=== PATIENT | female | born 1990 | race Hispanic/Latino ===

== ENCOUNTER 2017-09-23 07:49 | Emergency (ER) | payer MEDICAID, OTHER ==
[2017-09-23] MEDS ORDERED: ONDANSETRON ODT 4 MG TAB ONE (07:54)
[2017-09-23 08:11] LABS: APPEARANCE,URINE Clear (CLEAR); BILIRUBIN,URINE Negative (NEGATIVE); COLOR,URINE Yellow (YELLOW); GLUCOSE, URINE (UA) Negative (NEGATIVE); HCG,QUAL RESULT NEGATIVE (NEGATIVE); KETONES,URINE Negative (NEGATIVE); LEUKOCYTE ESTERASE ,URINE Negative (NEGATIVE); NITRATE,URINE Negative (NEGATIVE); OCCULT BLOOD,URINE Negative (NEGATIVE); PH,URINE 7.5 (5.0-8.0); PROTEIN,URINE Negative (NEGATIVE)
[2017-09-23 08:49] LABS: BASOPHILS % (AUTO) 0.1 % (0.0-5.0); EOSINOPHILS % (AUTO) 0.2 % (0.0-8.0); HEMATOCRIT 42.1 % (36-48); LYMPHOCYTES % (AUTO) 1.6 % (21.0-51.0); MEAN CORPUSCULAR HEMOGLOBIN 34.5 pg (27.0-33.0); MEAN CORPUSCULAR HGB CONC 35.2 g/dL (32.0-36.0); MEAN CORPUSCULAR VOLUME 98.1 fL (79-99); MONOCYTES % (AUTO) 4.2 % (3.0-13.0); NEUTROPHILS % (AUTO) 93.9 % (40.0-77.0); PLATELET COUNT (AUTO) 270 K/uL (130-400); RED BLOOD CELL COUNT(AUTO) 4.29 MIL/uL (4.00-5.50); RED CELL DISTRIBUTION WIDTH 13.5 % (11.0-15.5); WHITE BLOOD COUNT (AUTO) 14.6 K/uL (4.8-10.8)
[2017-09-23 09:04] LABS: CREATININE 0.8 mg/dL (0.5-1.5); POTASSIUM 3.9 mmol/L (3.5-5.1); TOTAL PROTEIN, SERUM 7.9 g/dL (6.0-8.3)
[2017-09-23] MEDS ORDERED: SODIUM CHLORIDE 0.9% 1000ML 1,000 ML IV ONE ×2 (09:21→10:13)
[2017-09-23] MEDS ORDERED: DiphenhydrAMINE HCL 50 MG/ML VIAL ONE (10:13)
[2017-09-23] MEDS ORDERED: KETOROLAC TROMETHAMINE 30MG/ML ONE (10:13)
== END 2017-09-23 12:01 | disposition home or self-care (01) ==
LOC: EDH 07:49
DX: E86.0 Dehydration (principal); M79.1 Myalgia; R10.84 Generalized abdominal pain
CPT/HCPCS: 36415; 80053; 81003; 81025; 82150; 83690; 85025; 87804 ×2; 96361; 96374; 96375; 99285; J1200; J1885; J7030 ×2

== ENCOUNTER 2018-11-19 01:49 | Observation (INO) | payer OTHER ==
[2018-11-19] VITALS (7 sets, daily range): BP systolic 101–120; BP diastolic 47–75
[~2018-11-19] VITALS: Ht 157.5 cm; Wt 61.2 kg
--- NOTE | 2018-11-19 02:25 | NUR ---
ADMIT PT ADMITTED TO ROOM 420 AAOX3. DENIES ABDOMINAL PAINS AT THIS TIME. AMBULATORY WITHOUT ASSISTANCE. ADMISSION CARE DONE. ADMISSION DATA BASE COMPLETED. RACHELE ROSARIO FOR HOSPITALIST, IN TO SEE PT. NEW ORDERS GIVEN, PLEASE REFER TO CPOE. OREINTED TO ROOM AND UNIT. IN FOR MORE CARE AND MANAGEMENT. Addendum: 11/19/18 at 0923 by MARY ANN STARR RN RN Amended: Links added.
[2018-11-19] MEDS: SODIUM CHLORIDE 0.9% 1000ML 1,000 ML IV SCH ×3 (03:30→22:35)
--- NOTE | 2018-11-19 03:30 | NUR ---
IVF PT JUST HAD A SHOWER, TOLERATED ACTIVITY WELL. STARTED ON IVF OF NS REGULATED AT 100CC/HR. INSTRUCTED TO BE NPO. PT VERBALIZES UNDERSTANDING. ENCOURAGED TO REST AND SLEEP. CALL LIGHT WITHIN REACH. WILL MONITOR PT.
[2018-11-19 07:27] LABS: ALBUMIN 3.2 g/dL (3.5-5.0); AMYLASE 53 U/L (25-115); CREATININE 0.8 mg/dL (0.5-1.5); LIPASE 115 U/L (114-286); POTASSIUM 3.9 mmol/L (3.5-5.1); TOTAL PROTEIN, SERUM 5.9 g/dL (6.0-8.3)
[2018-11-19 08:06] LABS: HEMATOCRIT 34.4 % (36-48); MEAN CORPUSCULAR HGB CONC 34.7 g/dL (32.0-36.0); MEAN CORPUSCULAR VOLUME 103.6 fL (79-99); NUCLEATED RED BLOOD CELLS 0.1 % (0.0-0.19); PLATELET COUNT (AUTO) 229 K/uL (130-400); RED BLOOD CELL COUNT(AUTO) 3.32 MIL/uL (4.00-5.50); RED CELL DISTRIBUTION WIDTH 13.1 % (11.0-15.5)
--- NOTE | 2018-11-19 08:10 | NUR ---
ENDORSED PT RESTING IN BED. NO COMPLAINTS VERBALIZED. REPORT GIVEN TO AM NURSE. FOR MORE CARE.
[2018-11-19 08:52] LABS: INR 1.07 (0.85-1.15); PARTIAL THROMBOPLASTIN TIME 27.7 SEC (26.3-35.5); PROTHROMBIN TIME 11.2 SEC (9.6-11.6)
[2018-11-19 10:41] LABS: LYMPHOCYTES % (MANUAL) 22 % (22-44); MAN.DIFF COMMENT-IMPRESSION MANUAL DIFFERENTIAL; MONOCYTES % (MANUAL) 4 % (2-9); SEGMENTED NEUTROPHILS % 74 % (40-70)
[2018-11-19 10:42] LABS: PLATELET MORPHOLOGY COMMENT ADEQUATE
[2018-11-19] MEDS: ZOSYN 3.375GM+NS 50ML 50 ML IV SCH ×3 (10:53→20:30)
[2018-11-19] MEDS: FAMOTIDINE/PF 20 MG/2 ML VIAL IV SCH ×2 (10:53→20:30)
[2018-11-19] MEDS ORDERED: MAGNESIUM CITRATE 296 ML SOLUTION PO SCH (12:30)
--- NOTE | 2018-11-19 12:30 | NUR ---
1217 Dr durant call back and orders for mag citrate and clear lliq diet. Pt inform of orders and verbalized understanding. primary nurse also made aware. Joesph yu
[2018-11-19] MEDS: ONDANSETRON HCL 4 MG/2 ML VIAL IV PRN ×2 (13:37→18:51)
--- NOTE | 2018-11-19 14:37 | NUR ---
[facility] met with pt who lives alone, works, drives and is independent of ADLS, no DME or HH. Sister Katie Wiseman [phone] is ER contact. Plan is home at or Addendum: 11/19/18 at 1441 by MEEK BELTRÁN Amended: Links added.
--- NOTE | 2018-11-19 15:10 | NUR ---
0740 RECEIVED REPORT FROM YOANA DONALDSON OF BP 78 SYSTOLIC, IN TO ASSESS PATIENT, IS LETHARGIC, RESPONSIVE TO TOUCH, ORIENTED TO PERSON ONLY REASSESSED BLOOD PRESSURE 78/37, NO SIGNS OF DISTRESS, PLACED IN [place] POSITION, DR GILBERT INFORMED OF FINDINGS, RECEIVED ORDERS FOR NS BOLUS, ALBUMIN 50 GRAM. PATIENT PLACED ON TELE. NSR. ORDERS NOTED AND CARRIED OUT. 847 AFTER NS BOLUS AND ALBUMIN BLOOD PRESSURE INCREASED TO 80'S SYSTOLIC CONTINUES WITH LETHARGY, AWARE, [address] HEAD NO CONTRAST, BP CONTINUES IN 80'S TO 90'S SYSTOLIC, MAP 50. 1030 PATIENT CONTINUES WITH LETHARGY, EASILY AROUSABLE, BP CONTINUES TO FLUCTUATE 70-90 SYST, INFORMED 1108 PATIENT BP NOT IMPROVING 50 GRAMS ALBUMIN NOW COMPLETE, SPOKE WITH ROOFING APPRENTICE, CHARGE NURSE, RAPID RESPONSE INITIATED. 1111 PATIENT GIVEN NARCAN PER RR PROTOCOL 1113 PT NOW AWAKE VERY DROWSY. 1114 RR CLEARED, [address], TOLERATED WELL. [address] RESULT, NEG, INFORMED DR GILBERT, RECEIVED ORDERS FOR TRANSFER TO [facility]
[2018-11-19] MEDS ORDERED: MORPHINE SULFATE 4 MG/1ML SYG IM PRN (18:30)
[2018-11-19] MEDS ORDERED: MORPHINE SULFATE 2 MG/ML 1ML SYG ONE (18:49)
[2018-11-20] MEDS ORDERED: MORPHINE SULFATE 4 MG/1ML SYG IV PRN (02:30)
[2018-11-20 03:35] VITALS: BP 95/54
[2018-11-20] MEDS: ZOSYN 3.375GM+NS 50ML 50 ML IV SCH (04:43)
[2018-11-20 04:54] LABS: BASOPHILS % (AUTO) 1.3 % (0.0-5.0); EOSINOPHILS % (AUTO) 1.1 % (0.0-8.0); HEMATOCRIT 34.2 % (36-48); LYMPHOCYTES % (AUTO) 38.2 % (21.0-51.0); MEAN CORPUSCULAR HEMOGLOBIN 35.3 pg (27.0-33.0); MEAN CORPUSCULAR HGB CONC 34.1 g/dL (32.0-36.0); MEAN CORPUSCULAR VOLUME 103.6 fL (79-99); MONOCYTES % (AUTO) 9.1 % (3.0-13.0); NEUTROPHILS % (AUTO) 50.3 % (40.0-77.0); PLATELET COUNT (AUTO) 221 K/uL (130-400); RED CELL DISTRIBUTION WIDTH 12.8 % (11.0-15.5); WHITE BLOOD COUNT (AUTO) 5.6 K/uL (4.8-10.8)
[2018-11-20 05:07] LABS: CREATININE 0.9 mg/dL (0.5-1.5); POTASSIUM 3.9 mmol/L (3.5-5.1)
[2018-11-20] MEDS ORDERED: DIATR MEGLU/DIATRIZOATE SODIUM 30 ML BOTTLE ONE (07:28)
[2018-11-20 08:00] VITALS: BP 101/55
[2018-11-20] MEDS: SODIUM CHLORIDE 0.9% 1000ML 1,000 ML IV SCH (08:32)
[2018-11-20] MEDS: FAMOTIDINE/PF 20 MG/2 ML VIAL IV SCH (08:34)
[2018-11-20] MEDS ORDERED: IOHEXOL-350 75 ML VIAL IV ONE (10:11)
[2018-11-20 12:00] VITALS: BP 114/63
[2018-11-20] MEDS ORDERED: ONDA4TAB4 PO (12:43)
== END 2018-11-20 15:43 | disposition home or self-care (01) ==
LOC: 4CH 02:22 → 4BH 19:37
PROVIDERS: ADMIT Internal Medicine; ATTEND Internal Medicine
DX: K35.80 Unspecified acute appendicitis (principal); R42 Dizziness and giddiness; Z79.899 Other long term (current) drug therapy; Z79.01 Long term (current) use of anticoagulants
CPT/HCPCS: 36415 ×2; 74178; 80048; 80053; 82150; 83690; 85025 ×2; 85610; 85730; 87040 ×2; 93005; 96361 ×2; 96365; 96366 ×2; 96375; 96376 ×2; G0378 ×38; J2405 ×2; J2543 ×4; J3490 ×3; Q9963; Q9967

== ENCOUNTER 2019-07-28 22:12 | Emergency (ER) | payer OTHER ==
[~2019-07-28 22:12] MED LIST: ONDA4TAB4 PO
[2019-07-28] MEDS ORDERED: KETOROLAC TROMETHAMINE 60 MG/2 ML VIAL ONE (23:25)
== END 2019-07-29 00:58 | disposition home or self-care (01) ==
LOC: EDH 22:12
DX: R07.89 Other chest pain (principal); M79.18 Myalgia, other site; R42 Dizziness and giddiness; R06.02 Shortness of breath
CPT/HCPCS: 71046; 81025; 93005; 96372; 99285; J1885